=== PATIENT | female | born 1960 | race Caucasian/White ===

== ENCOUNTER 2018-06-23 12:43 | Outpatient (CLI) | payer OTHER ==
[2018-06-23] MEDS ORDERED: Iopamidol 370 76% 100 ML VIAL ONE (15:04)
--- NOTE | 2018-06-23 15:22 | CT ---
PRE AND POSTCONTRAST ENHANCED CT IMAGES CHEST: HISTORY: Patient asthma, shortness of breath. FINDINGS: Pre- and postcontrast-enhanced CT images of the chest performed. Coronal reconstructed images perfor med. CT images demonstrate some small areas of atherosclerotic plaque in the proximal portion of the left anterior descending coronary artery. No significant evidence of lung parenchymal masses seen. No evidence of masses or interstitial waters es or scarring seen. There are mild areas of peribronchial thickening in both lower lobes. There is some minimal lymph node enlargement in the superior mediastinum as well as in the pretrachea l mediastinum. No definite evidence of hepatic or splenic or renal abnormalities seen. IMPRESSION: 1. Minimal mediastinal prominent lymph nodes. 2. Small area of coronary artery calcifications in the proximal-most aspect of the left anterior ryann cending. POS: [facility]
== END 2018-06-23 12:44 | disposition home or self-care (01) ==
LOC: BICCT 12:43
PROVIDERS: ATTEND Allergy & Immunology
DX: J84.9 Interstitial pulmonary disease, unspecified (principal); I25.10 Atherosclerotic heart disease of native coronary artery without angina pectoris
CPT/HCPCS: 71270

== ENCOUNTER 2018-10-06 09:56 | Outpatient (CLI) | payer OTHER ==
--- NOTE | 2018-10-06 12:40 | ULT ---
RIGHT INGUINAL ULTRASOUND: HISTORY: Right inguinal palpable mass. TECHNIQUE: Multiplanar, cantu scale, and color Doppler images were obtained in a right inguinal ultrasound. FINDINGS: A normal-appearing lymph node is seen in the right inguinal region. There is a region marked by the technologist measuring 2.9 cm in size. This appears beneath the fascia. The technologist thought sh e saw peristasis in this location. This may represent bowel within the inguinal canal or within the pelvis. No significant right inguinal abnormality. POS: [facility]
== END 2018-10-06 09:57 | disposition home or self-care (01) ==
LOC: BICULT 09:56
PROVIDERS: ATTEND Family Medicine
DX: R19.09 Other intra-abdominal and pelvic swelling, mass and lump (principal)
CPT/HCPCS: 76999

== ENCOUNTER 2018-10-23 11:08 | Outpatient (CLI) | payer OTHER | END 2018-10-23 11:09 | disposition home or self-care (01) | LOC: CTENTCT 11:08 | PROVIDERS: ATTEND Otolaryngology Plastic Surgery within the Head & Neck | DX: J32.9 Chronic sinusitis, unspecified (principal) | CPT/HCPCS: 70486 ==

== ENCOUNTER 2019-02-03 12:59 | Outpatient (CLI) | payer OTHER ==
--- NOTE | 2019-02-03 14:45 | RAD ---
SI JOINTS: 02/03/19 INDICATION: Low back pain. SI joints are opened and appear symmetric. Mild symmetric degenerative sclerosis seen along the raghu c side of both SI joints. No abnormal sclerosis or evidence of inflammatory arthropathy identified. D egenerative changes in the lumbosacral region with bridging osteophytes in the lower lumbar spine. POS: [facility]
== END 2019-02-03 13:00 | disposition home or self-care (01) ==
LOC: BICRAD 12:59
PROVIDERS: ATTEND Family Medicine
DX: M54.5 Low back pain (principal)
CPT/HCPCS: 72202

== ENCOUNTER 2019-09-07 12:13 | Outpatient (CLI) | payer OTHER ==
--- NOTE | 2019-09-07 12:58 | RAD ---
Exam: XR Knee Lt 2 View HISTORY: Acute left knee pain after a fall 2 days ago. COMPARISON: None FINDINGS: There is tricompartment osteophytosis with mild narrowing of the lateral joint space. No acute fracture, dislocation, or other acute osseous abnormality is identified. IMPRESSION: Mild osteoarthritis without evidence of an acute osseous abnormality.
--- NOTE | 2019-09-07 13:00 | RAD ---
Exam: XR Hip Lt 2-3 View HISTORY: Left hip pain after fall on Saturday. COMPARISON: None FINDINGS: Small sclerotic density is seen within the region of the base of the left greater trochanter which ap pears more cortically based on the lateral projection, but this has an appearance of a lesion of low biological activity. No acute fracture, dislocation, or other acute osseous abnormality is identified. IMPRESSION: No acute osseous abnormality is identified.
--- NOTE | 2019-09-07 13:01 | RAD ---
RADIOGRAPH LUMBAR SPINE 3 VIEWS: DATE: 09/07/2019 HISTORY: Lumbar spine trauma. 59-year-old female with M 54.42, lumbago with sciatica, left side, after fall. FINDINGS: Vertebral body heights are maintained. There is no evidence of fracture. There are degenerative disc changes and degenerative facet changes. There are 5 lumbar-type vertebrae. There is levoscoliosis centered at L1-2 where there is high-grade unilateral right-sided disc space narrowing with right-marimar ed endplate sclerosis. Loss of lordosis suggestive of muscle spasm. Disc space narrowing of varying degrees, mild, moderate, and severe, at various levels. Facet DJD at L4-5 and L5-S1. IMPRESSION: 1) no evidence of compression fracture. 2) lumbar spondylosis.
== END 2019-09-07 12:14 | disposition home or self-care (01) ==
LOC: BICRAD 12:13
PROVIDERS: ATTEND Family Medicine
DX: M25.562 Pain in left knee (principal); M25.552 Pain in left hip; M54.42 Lumbago with sciatica, left side; M47.816 Spondylosis without myelopathy or radiculopathy, lumbar region; M17.12 Unilateral primary osteoarthritis, left knee
CPT/HCPCS: 72100

== ENCOUNTER 2020-01-13 05:55 | Day surgery (SDC) | payer OTHER, SELFPAY ==
[2020-01-12 10:32] VITALS: BMI 27.3
[2020-01-13] MEDS ORDERED: Fentanyl 100 MCG/2 ML VIAL ONE (06:37)
[2020-01-13] MEDS ORDERED: Midazolam HCl 2 mg/2 ml Vial ONE (06:37)
[2020-01-13] MEDS ORDERED: Famotidine/PF 20 mg/2ml Vial ONE (07:20)
[2020-01-13] MEDS ORDERED: Scopolamine 1.5 mg/72 hour Patch ONE (07:21)
[2020-01-13] MEDS ORDERED: Bupivacaine PF 0.5% 30 ML VIAL ONE (07:22)
--- NOTE | 2020-01-13 09:55 | OP ---
DATE OF PROCEDURE: 01/13/2020 PREOPERATIVE DIAGNOSIS: Left knee lateral meniscal tear. POSTOPERATIVE DIAGNOSIS: Left knee lateral meniscal tear. PROCEDURE PERFORMED: Left knee arthroscopy with partial lateral meniscectomy. SPREADING MACHINE OPERATOR: None. ESTIMATED BLOOD LOSS: Minimal. COMPLICATIONS: None. ANESTHESIA: She had general anesthetic. She went to recovery room in stable condition. INDICATIONS: This is a 59-year-old female, who has been having problems with her left knee for quite some time, at this time presenting for surgery. DESCRIPTION OF PROCEDURE: After all appropriate consent forms were explained and signed, she was taken to the operative room and at this time was given general anesthetic. Once the level of anesthesia was appropriate, tourniquet was placed on her left thigh. Leg was placed in arthroscopic leg mckinney. The limb was then prepped and draped in standard surgical fashion. The limb was then exsanguinated and tourniquet was taken up to 300 mmHg. Inferolateral portal was established. Scope was placed into the knee joint. A needle localization technique was then used to make a medial working portal. Diagnostic arthroscopy commenced in the notch. The ACL and PCL probed, found to be intact. The medial compartment showed the medial meniscus to be intact. The tibial plateau was in good condition. There were global grade 2 changes on the medial femoral condyle. As we entered laterally, we noted a very complex tear of the lateral meniscus to include large flap tears of the anterior horn body and the posterior horn of the meniscus. The multiple flap tears were on top and below the meniscus itself. Also of note, there was a grade 4 lesion on the lateral tibial plateau, that was approximately 6 mm wide and nearly 2 cm long. Toward the notch from this grade 4 lesion, there was some grade 2 cartilage loss, laterally there was normal-appearing cartilage. At this time, biter and shaver were used to perform partial meniscectomy back to a stable base. Once this was done, the gutters were swept through. No loose bodies were noted. There were some small osteophytes noted off the periphery of the femur and the patellofemoral joint overall was in good condition. At this time, scope was removed. Knee was drained. We then closed the medial portal. We then injected 0.5% plain Marcaine into the knee for postop pain relief without any issues. The other portal was closed. A bulky sterile dressing was applied. Tourniquet was let down. Toes pinked up nicely. The patient was awakened and taken to recovery room in stable condition. All counts were correct at the end of the case. She received preoperative IV antibiotics. Job ID: [id number]
[2020-01-13] MEDS ORDERED: HYDROcodone/Acetaminophen 5/325 mg Tablet ONE (10:45)
[2020-01-13] MEDS ORDERED: Lidocaine 1% PF 5 ML VIAL ONE (12:22)
[2020-01-13] MEDS ORDERED: Ondansetron PF 4 MG/2 ML Vial ONE (12:22)
[2020-01-13] MEDS ORDERED: PROPOFOL 200 MG/20 ML VIAL ONE (12:22)
[2020-01-13] MEDS ORDERED: Dexamethasone 20 MG/5 ML VIAL ONE (12:22)
== END 2020-01-13 11:00 | disposition home or self-care (01) ==
LOC: SDC 05:55
PROVIDERS: ATTEND Orthopaedic Surgery
PROC: 0SBD4ZZ Excision of Left Knee Joint, Percutaneous Endoscopic Approach (ICD-10-PCS; principal; 2020-01-13)
DX: S83.272A Complex tear of lateral meniscus, current injury, left knee, initial encounter (principal); Z79.51 Long term (current) use of inhaled steroids; Z79.899 Other long term (current) drug therapy; Z88.2 Allergy status to sulfonamides; Z88.5 Allergy status to narcotic agent; Z87.891 Personal history of nicotine dependence; W19.XXXA Unspecified fall, initial encounter
CPT/HCPCS: J0690; J1100; J2001; J2250; J2405; J2704; J3010; S0020; S0028

== ENCOUNTER 2025-02-18 08:58 | Outpatient (CLI) | payer OTHER | END 2025-02-18 08:59 | disposition home or self-care (01) | LOC: BICULT 08:58 | PROVIDERS: ATTEND Registered Nurse | DX: K40.90 Unilateral inguinal hernia, without obstruction or gangrene, not specified as recurrent (principal); R19.09 Other intra-abdominal and pelvic swelling, mass and lump | CPT/HCPCS: 76705 ==

== ENCOUNTER 2025-04-02 09:02 | Outpatient (CLI) | payer OTHER ==
[2025-04-02 10:33] LABS: #Basophils 0.12 10x3/uL (0.0-0.2); #Eosinophils 0.63 10x3/uL (0.0-0.7); #Monocytes 0.36 10x3/uL (0.11-0.59); #Neutrophils 4.19 10x3/uL (1.40-6.50); %Basophils 1.8 % (0.0-1.0); %Eosinophils 9.5 % (0.0-10.0); %Lymphocytes 19.8 % (21.0-51.0); %Monocytes 5.4 % (0.0-10.0); %Neutrophils 63.2 % (42.0-75.0); Hematocrit 41.5 % (36.0-47.0); Hemoglobin 13.6 g/dL (12.0-16.0); Mean Corpuscular Hemoglobin 34.4 pg (27.0-31.0); Mean Corpuscular Volume 105.1 fL (78.0-98.0); Platelet Count 256 10x3/uL (130-400); Red Blood Cell (RBC) Count 3.95 mill/uL (4.20-5.40); White Blood Cell (WBC) Count 6.63 10x3/uL (4.8-10.8)
[2025-04-02 10:52] LABS: Anion Gap 13 mmol/L (10-20); BUN (Urea Nitrogen) 12 mg/dL (9.8-20.1); Calc. Creatinine Clearance 0 mL/min (70-130); Calcium 9.1 mg/dL (7.8-10.44); Carbon Dioxide 28 mmol/L (23-31); Chloride 106 mmol/L (98-107); Glucose 78 mg/dL (80-115); Potassium 4.0 mmol/L (3.5-5.1); Sodium 143 mmol/L (136-145)
== END 2025-04-02 09:03 | disposition home or self-care (01) ==
LOC: LABBT 09:02
PROVIDERS: ATTEND Specialist
DX: Z01.818 Encounter for other preprocedural examination (principal); K40.90 Unilateral inguinal hernia, without obstruction or gangrene, not specified as recurrent
CPT/HCPCS: 71046; 80048; 85025; 93005; 93010